=== PATIENT | female | born 1965 | race Caucasian/White ===

== ENCOUNTER 2017-03-14 11:31 | Emergency (ER) | payer OTHER ==
[2017-03-14] MEDS ORDERED: Alum Hydrox/Mag Hydrox/Simeth 15 ML, Lidocaine 2% 15 ML PO ONE ×2 (12:00)
--- NOTE | 2017-03-14 12:03 | EDM.PDOC ---
ED HPI GENERAL MEDICAL PROBLEM - General Chief Complaint: Chest Pain Stated Complaint: CHEST PRESSURE Time Seen by Provider: 03/14/17 11:53 Source of Information: Reports: Patient, RN Notes Reviewed History Limitations: Reports: No Limitations - History of Present Illness INITIAL COMMENTS - FREE TEXT/NARRATIVE: 52-year-old female presents emergency department day complaint of chest pressure she states been having some palpitations and heartburn chest pressure with radiations into her left arm for the last 2 days she does not feel short of breath but it hurts when she takes a deep breath no nausea no diaphoresis she was able to go through her workout routine this morning without difficulty felt she had no change in her chest pressure did try Tums felt she had little relief from has noticed no change with food. Initially tried to go to the clinic however with the complaint of chest pain she was immediately referred to the emergency department for further evaluation Epigastric Pain Score (Numeric/FACES): 5 - Related Data Allergies Allergy/AdvReac Type Severity Reaction Status Date / Time metronidazole [From Flagyl] Allergy Severe Airway Verified 03/14/17 11:39 Tightness Home Meds: Home Meds Ergocalciferol (Vitamin D2) [Vitamin D2] 50,000 units PO WEEKLY 03/14/17 [ History] Estradiol [Estradiol] 1 patch TOP WEEKLY 03/14/17 [History] buPROPion HCl [Wellbutrin Xl] 150 mg PO DAILY 03/14/17 [History] Past Medical History HEENT History: Reports: Cataract, Impaired Vision 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: - Past Surgical History Female Surgical History: Reports: Nephrectomy Social & Family History - Tobacco Use Smoking Status *Q: Never Smoker - Caffeine Use Caffeine Use: Reports: Coffee - Alcohol Use Days Per Week of Alcohol Use: 1 Number of Drinks Per Day: 1 Total Drinks Per Week: 1 - Recreational Drug Use Recreational Drug Use: No ED ROS GENERAL - Review of Systems Review Of Systems: See Below Constitutional: Denies: Diaphoresis HEENT: Reports: No Symptoms Respiratory: Reports: Shortness of Breath (Only with a deep breath) Cardiovascular: Reports: Chest Pain GI/Abdominal: Reports: No Symptoms : Reports: No Symptoms ED EXAM, GENERAL - Physical Exam Exam: See Below Free Text/Narrative:: General: Female, anxious but not in any distress, alert and oriented x3 HEENT: head is atraumatic normocephalic, eyes pupils equal round reactive to light, sclera clear no conjunctivitis appreciated. Ears blocked by cerumen bilaterally canals are clear. Nose no septal deviation, nares are clear, no blood present. Mouth mucosa is moist and pink no erythema or exudate noted in soft palate, tongue is midline uvula is midline, dentition is intact. Neck: Supple no thyromegaly no tracheal deviation. Nodes: Cervical nodes subclavicular nodes nontender no palpable lymphadenopathy noted. Lungs: clear to auscultation bilaterally with symmetrical respirations, no adventitious noise appreciated. CV: Regular rate and rhythm S1 and S2 appreciated no murmurs rubs or gallops noted. Abdomen: Soft, nontender, no palpable masses or organomegaly appreciated, no distention no guarding bowel sounds are present, . Neuro: Cranial nerves II through XII grossly intact Skin: Warm and dry, intact Extremities: No lower extremity edema appreciated, Course - Vital Signs Last Recorded V/S: Last Vital Signs Temp 98.4 F 03/14/17 11:35 Pulse 64 03/14/17 11:35 Resp 24 H 03/14/17 11:57 BP 133/85 03/14/17 11:57 Pulse Ox 93 L 03/14/17 11:57 - Orders/Labs/Meds Orders: Active Orders 24 hr Category Date Time Status Cardiac Monitoring [RC] .As Directed Care 03/14/17 12:00 Active EKG Documentation Completion [RC] ASDIRECTED Care 03/14/17 12:00 Active Chest 2V [CR] Stat Exams 03/14/17 12:00 Taken EKG 12 Lead [EK] Stat Ther 03/14/17 12:00 Ordered Labs: Laboratory Tests 03/14/17 03/14/17 03/14/17 Range/Units 12:06 12:06 12:06 WBC 7.7 (4.5-11.0) K/uL RBC 4.58 (3.30-5.50) M/uL Hgb 14.3 (12.0-15.0) g/dL Hct 41.1 (36.0-48.0) % MCV 90 (80-98) fL MCH 31 (27-31) pg MCHC 35 (32-36) % Plt Count 363 (150-400) K/uL Neut % (Auto) 66 (36-66) % Lymph % (Auto) 22 L (24-44) % [place] % (Auto) 9 H (2-6) % Eos % (Auto) 2 (2-4) % Baso % (Auto) 1 (0-1) % D-Dimer, Quantitative < 100 (0.0-400.0) ng/mL Sodium 142 (140-148) mmol/L Potassium 3.8 (3.6-5.2) mmol/L Chloride 105 (100-108) mmol/L Carbon Dioxide 30 (21-32) mmol/L Anion Gap 6.9 (5.0-14.0) mmol/L BUN 20 H (7-18) mg/dL Creatinine 1.1 H (0.6-1.0) mg/dL Est Cr Clr Drug Dosing 50.49 mL/min Estimated GFR (MDRD) 52 L (>60) Glucose 97 (74-106) mg/dL Calcium 9.3 (8.5-10.1) mg/dL Total Bilirubin 0.4 (0.2-1.0) mg/dL AST 18 (15-37) U/L ALT 24 (12-78) U/L Alkaline Phosphatase 36 L (46-116) U/L Troponin I < 0.017 (0.000-0.056) ng/mL Total Protein 7.0 (6.4-8.2) g/dL Albumin 3.4 (3.4-5.0) g/dL Globulin 3.6 H (2.3-3.5) g/dL Albumin/Globulin Ratio 0.9 L (1.2-2.2) Meds: Medications Discontinued Medications Generic Name Dose Route Start Last Admin Trade Name Freq PRN Reason Stop Dose Admin Al Hydroxide/Mg Hydroxide 15 0 ml 03/14/17 12:00 03/14/17 12:08 ml/ Lidocaine HCl 15 ml PO 03/14/17 12:01 15 ml ONETIME ONE Administration Departure - Departure Time of Disposition: 12:58 Disposition: Home, Self-Care 01 Condition: Good Clinical Impression: Atypical chest pain Forms: ED Department Discharge Additional Instructions: Try [id number] antacid such as Zantac or Nexium, Please followup with your primary care provider in 3-5 days if not better, please call return to the emergency department with worsening of symptoms. - My Orders Last 24 Hours: My Active Orders 03/14/17 12:00 Cardiac Monitoring [RC] .As Directed EKG Documentation Completion [RC] ASDIRECTED Chest 2V [CR] Stat EKG 12 Lead [EK] Stat - Assessment/Plan Last 24 Hours: My Active Orders 03/14/17 12:00 Cardiac Monitoring [RC] .As Directed EKG Documentation Completion [RC] ASDIRECTED Chest 2V [CR] Stat EKG 12 Lead [EK] Stat Plan: Assessment Acuity = acute Site and laterality = chest pressure, located patient known history of anxiety Etiology = suspicious for underlying reflux disease Manifestations = none Location of injury = Home Lab values = CBC unremarkable, creatinine elevated 1.1 consistent with a chronic renal failure stage GIII a, troponin was negative, EKG demonstrates normal sinus rhythm no ST changes, chest x-ray I did review films myself I cannot appreciate any acute process, the official read from radiology is pending , heart score is 1 Plan I did review lab work EKG and chest x-ray results with her she was provided GI cocktail which provided symptomatic relief recommend she try [id number] antacid suppresses such as Nexium or Zantac, follow-up primary care in 3-5 days for reevaluation Patient was in agreement with the plan all questions were answered, they were instructed to return to the emergency department or call for worsening symptoms. This note was dictated using [email or web address] voice recognition software please call with any questions.
--- NOTE | 2017-03-14 13:04 | CR ---
Chest 2V INDICATION: Chest Pain COMPARISON: None FINDINGS: Two views. Heart size normal. Lungs are clear. No infiltrate or pleural effusion. No si gns of pulmonary edema. Fat at the cardiophrenic angle on the right unchanged, normal variant. IMPRESSION: Negative chest.
[2017-03-14 13:16] VITALS: BP 136/85
== END 2017-03-14 13:17 | disposition home or self-care (01) ==
LOC: JP.ED 11:31
DX: R07.89 Other chest pain (principal); Z90.5 Acquired absence of kidney; Z79.899 Other long term (current) drug therapy; Z88.8 Allergy status to other drugs, medicaments and biological substances
CPT/HCPCS: 36415; 71020; 80053; 84484; 85025; 85379; 93005; 99285; A9270

== ENCOUNTER 2018-08-18 07:01 | Emergency (ER) | payer OTHER ==
[2018-08-18 08:22] VITALS: BP 136/82
[2018-08-18] MEDS ORDERED: HYDROmorphone 1 MG/ML Syringe IM ONE (09:31)
--- NOTE | 2018-08-18 10:01 | EDM.PDOC ---
ED HPI GENERAL MEDICAL PROBLEM - General Chief Complaint: Back Pain or Injury Stated Complaint: BACK PAIN Time Seen by Provider: 08/18/18 07:38 Source of Information: Reports: Patient History Limitations: Reports: No Limitations - History of Present Illness INITIAL COMMENTS - FREE TEXT/NARRATIVE: This lady complains of left flank and left upper quadrant pain. It's been going on for about 3 or 4 days now. She was seen in the clinic on Saturday and told that it was probably shingles but she is certain that it's not and she's never developed any kind of rash. The left upper quadrant pain does seem to be associated with movement. She has regular bowel movements. At one time she did think that maybe there was some blockage so she drank about half a bottle of magnesium citrate. That was yesterday. Cause some cramps and she had just a little bit of a loose bowel movement this morning. Denies any urinary symptoms. Denies any fever. 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 Denies: Constipation, Diarrhea : Reports: No Symptoms Musculoskeletal: Reports: No Symptoms Skin: Reports: No Symptoms Neurological: Reports: No Symptoms ED EXAM,LOWER BACK PAIN/INJURY - Physical Exam Exam: See Below Exam Limited By: No Limitations General Appearance: Alert, WD/WN, Mild Distress Throat/Mouth: Normal Inspection Respiratory/Chest: No Respiratory Distress, Lungs Clear Cardiovascular: Regular Rate, Rhythm, No Murmur GI/Abdominal: Normal Bowel Sounds, Soft, Tender (Left upper quadrant tenderness) Back Exam: CVA Tenderness (L) (Mild left CVA tenderness) Extremities: Normal Inspection Neurological: Alert, Normal Mood/Affect Skin Exam: Warm, Dry Course - Vital Signs Last Recorded V/S: Last Vital Signs Temp 35.5 C 08/18/18 07:22 Pulse 75 08/18/18 07:22 Resp 14 08/18/18 07:22 BP 136/82 08/18/18 07:22 Pulse Ox 97 08/18/18 07:22 - Orders/Labs/Meds Orders: Active Orders 24 hr Category Date Time Status Abdomen 2V AP Flat Upright [CR] Stat Exams 08/18/18 07:49 Taken Labs: Laboratory Tests 08/18/18 08/18/18 08/18/18 Range/Units 08:01 08:09 08:09 WBC 5.7 (4.5-11.0) K/uL RBC 4.58 (3.30-5.50) M/uL Hgb 13.9 (12.0-15.0) g/dL Hct 41.1 (36.0-48.0) % MCV 90 (80-98) fL MCH 30 (27-31) pg MCHC 34 (32-36) % Plt Count 384 (150-400) K/uL Neut % (Auto) 58 (36-66) % Lymph % (Auto) 27 (24-44) % [place] % (Auto) 10 H (2-6) % Eos % (Auto) 4 (2-4) % Baso % (Auto) 1 (0-1) % Sodium 140 (140-148) mmol/L Potassium 4.2 (3.6-5.2) mmol/L Chloride 105 (100-108) mmol/L Carbon Dioxide 29 (21-32) mmol/L Anion Gap 5.8 (5.0-14.0) mmol/L BUN 19 H (7-18) mg/dL Creatinine 0.9 (0.6-1.0) mg/dL Est Cr Clr Drug Dosing 60.99 mL/min Estimated GFR (MDRD) > 60 (>60) Glucose 107 H (74-106) mg/dL Calcium 9.4 (8.5-10.1) mg/dL Total Bilirubin 0.4 (0.2-1.0) mg/dL AST 17 (15-37) U/L ALT 28 (12-78) U/L Alkaline Phosphatase 45 L (46-116) U/L Total Protein 6.9 (6.4-8.2) g/dL Albumin 3.3 L (3.4-5.0) g/dL Globulin 3.6 H (2.3-3.5) g/dL Albumin/Globulin Ratio 0.9 L (1.2-2.2) Urine Color Yellow Urine Appearance Clear Urine pH 6.0 (4.5-8.0) Ur Specific [place] 1.015 (1.008-1.030) Urine Protein Trace (NEGATIVE) mg/dL Urine Glucose (UA) Normal (NEGATIVE) mg/dL Urine Ketones Negative (NEGATIVE) mg/dL Urine Occult Blood Trace (NEGATIVE) Urine Nitrite Negative (NEGATIVE) Urine Bilirubin Negative (NEGATIVE) Urine Urobilinogen Normal (NORMAL) mg/dL Ur Leukocyte Esterase Small (NEGATIVE) Urine RBC 5-10 H (0-5) Urine WBC 5-10 H (0-5) Ur Epithelial Cells Few Amorphous Sediment Few Urine Bacteria Not seen Urine Mucus Not seen Meds: Medications Discontinued Medications Generic Name Dose Route Start Last Admin Trade Name Freq PRN Reason Stop Dose Admin Hydromorphone HCl 1 mg 08/18/18 09:31 08/18/18 09:37 Dilaudid IM 08/18/18 09:32 1 mg ONETIME ONE Administration - Radiology Interpretation Free Text/Narrative:: KUB shows stool throughout most of the colon but seems to end at the splenic flexure. Appears the descending colon is has been evacuated although that side of the x-rays not seen very well. - Re-Assessments/Exams Free Text/Narrative Re-Assessment/Exam: 08/18/18 09:57 Discussed the findings with the patient. Will medicate her for pain I'm giving her right now a milligram of Dilaudid IM. Then I recommend the mag citrate full bottle and several glasses of water. She did have just a small amount of WBCs and RBCs in the urine but based on my exam and x-ray findings I think the proper thing to do would be to clear out her bowels. If that doesn't solve the problem then a CT KUB could be done but I don't think that that would be warranted right at the moment. Departure - Departure Time of Disposition: 10:01 Disposition: Home, Self-Care 01 Condition: Fair Clinical Impression: Abdominal pain, Constipation by delayed colonic transit - Discharge Information Referrals: PCP,None [Primary Care Provider] - Additional Instructions: Drink one full bottle of magnesium citrate followed by four 8 ounce glasses of water. This will generally clear out your bowels within 24 hours. You may have some cramping if so use the Percocet. There was a tiny bit of blood both red cells and white cells in the urine. That is frequently seen in normal people but it's always a little bit worrisome. If the mag citrate clears out your bowels and the pain persists then you would want to have a CT scan done to look for a kidney stone. That wouldn't be appropriate right now until your bowels or cleared out. Note that if you did have a kidney stone the medication Percocet would also be appropriate. At any rate when this is all over be sure that your Dr. recheck your urine and make sure that the small amount of blood has cleared up. Blood that persists in the urine could be a sign of something more serious. Note that Percocet can cause sedation and impair driving or operating machinery and if abused can actually be addicting. - My Orders Last 24 Hours: My Active Orders 08/18/18 07:49 Abdomen 2V AP Flat Upright [CR] Stat - Assessment/Plan Last 24 Hours: My Active Orders 08/18/18 07:49 Abdomen 2V AP Flat Upright [CR] Stat
== END 2018-08-18 10:20 | disposition home or self-care (01) ==
LOC: JP.ED 07:01
DX: K59.01 Slow transit constipation (principal); Z88.8 Allergy status to other drugs, medicaments and biological substances; Z79.899 Other long term (current) drug therapy
CPT/HCPCS: 36415; 74019; 80053; 81001; 85025; 96372; 99283; J1170

== ENCOUNTER 2018-08-19 08:01 | Emergency (ER) | payer OTHER ==
[2018-08-19 08:27] VITALS: BP 163/92
--- NOTE | 2018-08-19 08:32 | EDM.PDOC ---
ED HPI GENERAL MEDICAL PROBLEM - General Chief Complaint: Gastrointestinal Problem Stated Complaint: BOWEL PROBLEMS Time Seen by Provider: 08/19/18 08:50 Source of Information: Reports: Patient, Family History Limitations: Reports: No Limitations - History of Present Illness INITIAL COMMENTS - FREE TEXT/NARRATIVE: 53-year-old female with persistent left-sided abdominal and flank pain for the past 6 days. No fevers or chills. She said several physician visits have resulted in several different diagnoses including shingles and constipation. Her labs have been reassuring. She has taken a preparation of MiraLAX and is not improving. She has difficulty laying on her left side, she took Percocet last night which helped her sleep but the pain does not resolve. No urinary symptoms. Onset: Gradual Duration: Day(s): (Left abdominal and flank pain has been present for 6 days) Location: Reports: Abdomen, Back Severity: Moderate Improves with: Reports: Medication (Pain medication helps) Worsens with: Reports: Movement (Movement and lying on her left side both seem to make pain worse) Associated Symptoms: Reports: Chest Pain (She had chest pain 2 weeks ago which was worked up in [place], everything was negative and a stress test is planned) , Nausea/Vomiting (The colon prep made her nauseous with some vomiting). 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 Denies: Fever, Chills HEENT: Reports: No Symptoms Respiratory: Denies: Shortness of Breath, Cough Cardiovascular: Reports: Chest Pain (Chest pain is resolved) GI/Abdominal: Reports: Abdominal Pain, Constipation, Nausea, Vomiting : Reports: No Symptoms Skin: Reports: No Symptoms Neurological: Reports: No Symptoms ED EXAM, GI/ABD - Physical Exam Exam: See Below Exam Limited By: No Limitations General Appearance: Alert, No Apparent Distress (Looks uncomfortable but not distressed) Eyes: Bilateral: Normal Appearance (No jaundice) Head: Atraumatic Respiratory/Chest: No Respiratory Distress GI/Abdominal Exam: Soft, Tender (Patient does have tenderness to palpation along the left anterior abdomen but no rebound tenderness or significant guarding) Extremities: Normal Inspection Neurological: Alert, Oriented Course - Vital Signs Last Recorded V/S: Last Vital Signs Temp 95.6 F 08/19/18 08:26 Pulse 86 08/19/18 08:26 Resp 16 08/19/18 08:26 BP 163/92 H 08/19/18 08:26 Pulse Ox 99 08/19/18 08:26 - Orders/Labs/Meds Meds: Medications Discontinued Medications Generic Name Dose Route Start Last Admin Trade Name Freq PRN Reason Stop Dose Admin Sodium Chloride 1,000 mls @ 1,000 mls/hr 08/19/18 09:00 08/19/18 09:06 Normal Saline IV 1,000 mls/hr ASDIRECTED MARISELA Administration Sodium Chloride 77 mls @ 3.5 mls/sec 08/19/18 09:01 08/19/18 09:33 Normal Saline IV 08/19/18 09:02 3.5 mls/sec ONETIME ONE Administration Iopamidol 123 ml 08/19/18 09:15 08/19/18 09:33 Isovue-300 (61%) IV 105 ml . DIRECTED MARISELA Administration Ketorolac Tromethamine 15 mg 08/19/18 10:15 08/19/18 10:19 Toradol IVPUSH 08/19/18 10:16 15 mg ONETIME ONE Administration Sodium Chloride 10 ml 08/19/18 09:01 08/19/18 09:05 Saline Flush FLUSH 08/19/18 09:02 10 ml ONETIME ONE Administration - Re-Assessments/Exams Free Text/Narrative Re-Assessment/Exam: 08/19/18 09:15 Reviewed the notes from the last several visits, everything is been evaluated other than a CT scan of the abdomen and pelvis. She does only have one kidney but her GFR is greater than 60, creatinine less than 1 so she will be bolused with 1 L of normal saline followed by IV contrast enhanced abdomen and pelvis CT scan. 08/19/18 14:00 CT scan was negative, radiologist recommended a second CT to follow the contrast to make sure the ureter was clear. This was also read as negative. After 15 mg of IV Toradol the patient felt quite a bit better, will stop the Percocet and use one Aleve twice daily and increase activity as tolerated. She' ll also stop any bowel preps and treatment for constipation and return to her regular diet concentrating on staying hydrated. Departure - Departure Time of Disposition: 11:10 Disposition: Home, Self-Care 01 Condition: Fair Clinical Impression: Left flank pain - Discharge Information Instructions: Flank Pain, Adult, [id number] Referrals: Mine Mcdonald CITRUS PICKER [Primary Care Provider] - Forms: ED Department Discharge Care Plan Goals: Try one Aleve twice daily, continue with Tylenol as needed and use Zofran under your tongue for any persistent nausea. Resume your regular diet, stay hydrated, and increase activity as tolerated including returning to work. Consider rechecking in 2-3 days if not improving satisfactorily or return sooner if worsening such as fever or breathing difficulties.
[2018-08-19] MEDS ORDERED: Sodium Chloride 0.9% 1,000 ML IV SCH (09:00)
[2018-08-19] MEDS ORDERED: Sodium Chloride 0.9% 10 ML Syringe FLUSH ONE (09:01)
[2018-08-19] MEDS ORDERED: Iopamidol 612 MG/ML 150 ML Bottle IV SCH (09:15)
[2018-08-19] MEDS ORDERED: Ketorolac 30 MG/ML SDV IVPUSH ONE (10:15)
--- NOTE | 2018-08-19 12:12 | CT ---
Abdomen Pelvis w Cont CLINICAL HISTORY: Left flank pain COMPARISON: 2012. TECHNIQUE: Axial tomographic images are obtained from the dome of the diaphragm to the pubic symphysis without IV contrast enhancement. No oral contrast was used. Auto dosage reduction and iterative reconstruction techniques employed. FINDINGS: The lung bases are clear. The liver contains multiple granulomata. There is no mass or biliary dilatation. The gallbladder has a normal contour. The spleen contains scattered granulomata. The pancreas shows no mass or inflammatory change. The adrenal glands appear normal bilaterally. The right kidney has been removed. The left kidney contains a bilobed the 2 x 3 cm cyst in the in the midpole. There is an ovoid parapelvic cyst measuring 2 x 3 cm. This has increased in size slightly since 2013. No stones are identified. The ureter has a normal course and contour. There are multiple calcifications in the pelvis just above the bladder. Delayed postcontrast imaging shows a small amount of contrast through a nondilated distal ureter. Intestinal pattern is nonacute. The aorta has a normal contour the bladder is thick-walled. IMPRESSION: Previous right nephrectomy Left renal parenchymal and parapelvic cysts No urinary stones or dilatation on the left Previous granulomatous exposure Generalized bladder wall thickening
--- NOTE | 2018-08-19 12:13 | CT ---
See CT abdomen and pelvis with contrast report
== END 2018-08-19 11:10 | disposition home or self-care (01) ==
LOC: JP.ED 08:01
DX: R10.9 Unspecified abdominal pain (principal); Z88.8 Allergy status to other drugs, medicaments and biological substances
CPT/HCPCS: 74176; 74177; 96361; 96374; 99285; J1885; J7030

== ENCOUNTER 2021-08-03 10:22 | Emergency (ER) | payer OTHER ==
[2021-08-03 10:44] VITALS: BP 159/86; PULSE 59
--- NOTE | 2021-08-03 11:06 | EDM.PDOC ---
ED HPI GENERAL MEDICAL PROBLEM - General Chief Complaint: Chest Pain Stated Complaint: CHEST PAIN Time Seen by Provider: 08/03/21 10:45 Source of Information: Reports: Patient History Limitations: Reports: No Limitations - History of Present Illness INITIAL COMMENTS - FREE TEXT/NARRATIVE: 56-year-old female with no cardiac history presents with 2 days of intermittent sharp chest pains. She usually exercises regularly and has no problem with pain, she is also lost 30 pounds over the past several months. Over the past 2 weeks however she had a significant cold, and a "sinus infection" so she has not been exercising. Yesterday she was going to exercise but then developed the subtle sharp brief chest pains and decided to take a nap instead and today while she was at work she developed a sharp pain in her left shoulder that lasted a few seconds and it scared her so she came in to be seen. She has no pain now. No diaphoresis currently, no nausea or vomiting. She has not been vaccinated for Covid. Onset: Sudden Duration: Other (When she gets pain it is a sharp pain and lasts only a few seconds) Location: Reports: Chest (Posterior and anterior chest, usually on the left side either the axillary area or below her scapula) Quality: Reports: Stabbing Improves with: Reports: None Worsens with: Reports: Breathing (Hurts to breathe briefly) Associated Symptoms: Reports: No Other Symptoms Chest Pain Score (Numeric/FACES): 6 - Related Data Allergies Allergy/AdvReac Type Severity Reaction Status Date / Time metronidazole [From Flagyl] Allergy Severe Airway Verified 08/03/21 10:41 Tightness Home Meds: Home Meds Calcium Carbonate [Calcium] 500 mg PO DAILY 08/03/21 [History] Cholecalciferol (Vitamin D3) [Vitamin D] 5,000 unit PO DAILY 08/03/21 [History] Past Medical History - Past Health History Medical/Surgical History: Denies Medical/Surgical History HEENT History: Reports: Cataract, Impaired Vision Gastrointestinal History: Reports: Chronic Constipation 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: Reports: - Infectious Disease History Infectious Disease History: Reports: Chicken Pox - Past Surgical History HEENT Surgical History: Reports: None GI Surgical History: Reports: None Female Surgical History: Reports: Nephrectomy Dermatological Surgical History: Reports: None Social & Family History - Tobacco Use Tobacco Use Status *Q: Former Tobacco User Used Tobacco, but Quit: Yes Month/Year Tobacco Last Used: 07/1994 - Caffeine Use Caffeine Use: Reports: Coffee - Recreational Drug Use Recreational Drug Use: No ED ROS GENERAL - Review of Systems Review Of Systems: See Below Constitutional: Denies: Fever, Chills HEENT: Denies: Vision Change Respiratory: Reports: Pleuritic Chest Pain. Denies: Shortness of Breath Cardiovascular: Reports: Chest Pain GI/Abdominal: Reports: No Symptoms : Reports: No Symptoms Musculoskeletal: Reports: No Symptoms Skin: Reports: No Symptoms Neurological: Denies: Headache Psychiatric: Reports: No Symptoms ED EXAM, GENERAL - Physical Exam Exam: See Below Exam Limited By: No Limitations General Appearance: Alert, No Apparent Distress Eye Exam: Bilateral Eye: Normal Inspection Head: Atraumatic Neck: Supple, Non-Tender Respiratory/Chest: No Respiratory Distress, Lungs Clear, Other (I cannot reproduce chest pain with palpation of the chest wall) Cardiovascular: Regular Rate, Rhythm GI/Abdominal: Soft, Non-Tender Extremities: Normal Inspection. No: Pedal Edema Neurological: Alert, Oriented #1 Interpretation EKG Date: 08/03/21 Time: 10:50 Rhythm: NSR EKG Interpretation Comments: EKG done on arrival to ER is completely normal Course - Vital Signs Last Recorded V/S: Last Vital Signs Temp 97.8 F 08/03/21 10:53 Pulse 59 L 08/03/21 10:40 Resp 16 08/03/21 10:40 BP 159/86 H 08/03/21 10:40 Pulse Ox 99 08/03/21 10:40 - Orders/Labs/Meds Orders: Active Orders 24 hr Category Date Time Status Isolation [COMM] Stat Oth 08/03/21 11:00 Ordered EKG 12 Lead [EK] Routine Ther 08/03/21 10:59 Ordered Labs: Laboratory Tests 08/03/21 08/03/21 08/03/21 Range/Units 10:59 10:59 11:09 WBC 6.1 (4.5-11.0) K/uL RBC 4.58 (3.30-5.50) M/uL Hgb 14.3 (12.0-15.0) g/dL Hct 41.4 (36.0-48.0) % MCV 90 (80-98) fL MCH 31 (27-31) pg MCHC 35 (32-36) % Plt Count 371 (150-400) K/uL Neut % (Auto) 57.5 (36-66) % Lymph % (Auto) 29.5 (24-44) % [place] % (Auto) 9.4 H (2-6) % Eos % (Auto) 2.4 (2-4) % Baso % (Auto) 0.7 (0-1) % Sodium 139 L (140-148) mmol/L Potassium 3.9 (3.6-5.2) mmol/L Chloride 102 (100-108) mmol/L Carbon Dioxide 31 (21-32) mmol/L Anion Gap 9.9 (5.0-14.0) mmol/L BUN 32 H D (7-18) mg/dL Creatinine 0.9 (0.6-1.0) mg/dL Est Cr Clr Drug Dosing 58.84 mL/min Estimated GFR (MDRD) > 60 (>60) Glucose 104 (74-106) mg/dL Calcium 9.3 (8.5-10.1) mg/dL Total Bilirubin 0.4 (0.2-1.0) mg/dL AST 26 (15-37) U/L ALT 50 D (12-78) U/L Alkaline Phosphatase 41 L (46-116) U/L Troponin I High Sens 6.7 (<=60.3) pg/mL Total Protein 6.8 (6.4-8.2) g/dL Albumin 3.7 (3.4-5.0) g/dL Globulin 3.1 (2.3-3.5) g/dL Albumin/Globulin Ratio 1.2 (1.2-2.2) Influenza Type A RNA Negative (NEGATIVE) RSV RNA (INAAT) Negative (NEGATIVE) Influenza Type B RNA Negative (NEGATIVE) SARS-CoV-2 RNA (MICHAEL) Negative (NEGATIVE) - Re-Assessments/Exams Free Text/Narrative Re-Assessment/Exam: 08/03/21 11:06 EKG is normal, this pain does not represent typical cardiac pain. It acts more like a an intercostal muscle spasm or pleuritic pain. A Covid 4 Plex study was obtained as well as CBC CMP and troponin. Patient was monitored while awaiting labs. 08/03/21 11:58 All labs were reassuring, she did develop a short episode of anterior left chest pain while here, it did get worse with palpitation so this is likely intermittent intercostal muscle irritation. Labs returned normal, troponin was negative, virus studies were negative. Patient is can increase activity as tolerated. Departure - Departure Time of Disposition: 12:10 Disposition: Home, Self-Care 01 Clinical Impression: Atypical chest pain, Chest wall pain - Discharge Information Instructions: Nonspecific Chest Pain, Adult, [id number] Referrals: PCP,None [Primary Care Provider] - Forms: ED Department Discharge Care Plan Goals: Increase activity as tolerated, take some longer acting anti-inflammatories like Aleve and use a local heating pad if symptoms persist. Stay hydrated and return anytime if pain becomes more persistent or you develop other concerns. Sepsis Event Note (ED) - Evaluation Sepsis Screening Result: No Definite Risk - Focused Exam Vital Signs: Vital Signs Temp Pulse Resp BP Pulse Ox 08/03/21 10:53 97.8 F 08/03/21 10:40 59 L 16 159/86 H 99 - My Orders Last 24 Hours: My Active Orders 08/03/21 10:59 EKG 12 Lead [EK] Routine 08/03/21 11:00 Isolation [COMM] Stat - Assessment/Plan Last 24 Hours: My Active Orders 08/03/21 10:59 EKG 12 Lead [EK] Routine 08/03/21 11:00 Isolation [COMM] Stat
[2021-08-03 11:45] LABS: CORONAVIRUS COVID-19 NAA NEGATIVE (NEGATIVE)
== END 2021-08-03 12:10 | disposition home or self-care (01) ==
LOC: JP.ED 10:22
DX: R07.89 Other chest pain (principal); Z88.1 Allergy status to other antibiotic agents; Z87.891 Personal history of nicotine dependence; Z20.822 Contact with and (suspected) exposure to COVID-19
CPT/HCPCS: 0241U; 36415; 80053; 84484; 85025; 93005; 99285; 93010; 99284

== ENCOUNTER 2023-02-05 21:25 | Emergency (ER) | payer OTHER ==
[2023-02-05 21:59] VITALS: BP 167/85; PULSE 71
[2023-02-05] MEDS: cefTRIAXone 1 GM, Lidocaine 1% 2.1 ML IM ONE ×2 (23:01)
[2023-02-05] MEDS: Diphtheria,Pertussis(Acell),Tetanus Vaccine 0.5 ML Syringe IM ONE (23:08)
== END 2023-02-05 23:50 | disposition home or self-care (01) ==
LOC: JP.ED 21:25
DX: S91.332A Puncture wound without foreign body, left foot, initial encounter (principal); L03.116 Cellulitis of left lower limb; Z86.16 Personal history of COVID-19; Z79.899 Other long term (current) drug therapy; Z88.8 Allergy status to other drugs, medicaments and biological substances; W45.8XXA Other foreign body or object entering through skin, initial encounter; Y93.01 Activity, walking, marching and hiking; Y92.002 Bathroom of unspecified non-institutional (private) residence as the place of occurrence of the external cause
CPT/HCPCS: 90471; 90715; 96372; 99283; J0696